=== PATIENT | female | born 1960 | race Two or more races ===

== ENCOUNTER 2017-07-26 13:59 | Emergency (ER) | payer OTHER ==
[2017-07-26 14:16] VITALS: BP 115/63; PULSE 76; TEMP 98.7; BMI 28.0
[2017-07-26] MEDS ORDERED: IBUPROFEN 400 MG TABLET (FP) PO ONE ×2 (14:59→15:07)
--- NOTE | 2017-07-26 15:12 | PDOC ---
History of Present Illness - General Chief Complaint: Injury Stated Complaint: INJURY Time Seen by Provider: 07/26/17 14:20 History Source: Patient - History of Present Illness Occurred: reports: yesterday Severity: reports: mild Pain Location: reports: lower extremity, upper extremity Method of Injury: Yes: fall Past History - Past Medical History Allergies/Adverse Reactions: Allergies Allergy/AdvReac Type Severity Reaction Status Date / Time No Known Allergies Allergy Verified 07/26/17 14:11 Home Medications: Ambulatory Orders Aspirin [ASA -] 81 mg PO DAILY 07/26/17 Escitalopram Oxalate [Lexapro -] 10 mg PO DAILY 07/26/17 Gabapentin [Neurontin] 100 mg PO ASDIR 07/26/17 Lisinopril [Prinivil] 10 mg PO DAILY 07/26/17 Metoprolol Succinate [Toprol Xl -] 50 mg PO DAILY 07/26/17 Simvastatin [Zocor -] 20 mg PO HS 07/26/17 Sitagliptin Phos/Metformin HCl [Janumet 50-500 mg Tablet] 1 each PO ASDIR Diabetes: Yes HTN: Yes Hypercholesterolemia: Yes - Psycho/Social/Smoking Cessation Hx Suicidal Ideation: No Smoking History: Current every day smoker Have you smoked in the past 12 months: Yes Number of Cigarettes Smoked Daily: 10 Information on smoking cessation initiated: No Review of Systems - Review of Systems ABD/GI: No: Nausea, Vomiting Musculoskeletal: Yes: Joint Pain, Joint Swelling Neurological: No: Headache, Dizziness *Physical Exam - Vital Signs Last Vital Signs Temp Pulse Resp BP Pulse Ox 98.7 F 76 19 115/63 100 07/26/17 14:11 07/26/17 14:11 07/26/17 14:11 07/26/17 14:11 07/26/17 14:11 - Physical Exam General Appearance: Yes: Appropriately Dressed. No: Apparent Distress HEENT: positive: Normal Voice Neck: positive: Supple Respiratory/Chest: negative: Respiratory Distress Gastrointestinal/Abdominal: positive: Soft. negative: Tender Extremity: positive: Normal Inspection, Swelling (No obvious swelling or deformity to upper extremities b/l, Minimal ttp w/ swelling over distal aspect of R 3rd-5th metatarsals) Integumentary: positive: Dry, Warm Neurologic: positive: Fully Oriented, Alert, Normal Mood/Affect ED Treatment Course - RADIOLOGY Radiology Studies Ordered: Category Date Time Status FINGER(S) RIGHT [RAD] Stat Radiology 07/26/17 15:00 Ordered FOOT-RIGHT [RAD] Stat Radiology 07/26/17 15:03 Ordered Medical Decision Making - Medical Decision Making 07/26/17 15:05 57 yo F, h/o arthritis, p/w pain to multiple sites s/p fall. Pt states she tripped and fell in the store yesterday. C/o pain to b/l thumb and R foot. Is able to ambulate and taking motrin which helps. Denies head injury, DON, dizziness, n/v See exam Multiple injuries s/p mechanical fall No head injury Not on blood thinners M/l musculoskeletal injuries -will r/o R foot fx given degree of tenderness -pain control 07/26/17 16:21 Non-displaced fx to distal phalanx of R 4th toe. Ortho shoe given. Pt already using cane. Will refer to orthopedics 07/26/17 16:28 07/26/17 16:32 *DC/Admit/Observation/Transfer Diagnosis at time of Disposition: Metatarsal fracture Qualifiers: Encounter type: initial encounter Metatarsal bone: fourth Fracture type: closed Fracture alignment: nondisplaced Laterality: right Qualified Code(s): S92.344A - Nondisplaced fracture of fourth metatarsal bone, right foot, initial encounter for closed fracture - Discharge Dispostion Disposition: HOME Condition at time of disposition: Good - Referrals Referrals: Corine Min MD [Primary Care Provider] - Meliton Paz MD [Staff Physician] - - Patient Instructions Printed Discharge Instructions: DI for Foot Fracture Additional Instructions: You have a fracture in your right 4th toe which will heal on its own. Take motrin for pain and wear hard sole shoe for comfort Please follow up with Dr Paz of orthopedics in 1-2 weeks for follow up Print Language: SERBIAN
== END 2017-07-26 16:51 | disposition home or self-care (01) ==
LOC: JERFT 13:59
DX: S92.534A Nondisplaced fracture of distal phalanx of right lesser toe(s), initial encounter for closed fracture (principal); S92.344A Nondisplaced fracture of fourth metatarsal bone, right foot, initial encounter for closed fracture; W18.39XA Other fall on same level, initial encounter; Y93.89 Activity, other specified; Y92.512 Supermarket, store or market as the place of occurrence of the external cause; Y99.8 Other external cause status; R26.89 Other abnormalities of gait and mobility; Z99.89 Dependence on other enabling machines and devices; I10 Essential (primary) hypertension; Z79.84 Long term (current) use of oral hypoglycemic drugs; E78.00 Pure hypercholesterolemia, unspecified; F17.210 Nicotine dependence, cigarettes, uncomplicated
CPT/HCPCS: 73140-TC-RT; 73630-TC-RT; 99281-25

== ENCOUNTER 2017-08-24 03:31 | Emergency (ER) | payer OTHER ==
[2017-08-24 03:53] VITALS: BMI 29.2
[2017-08-24 05:00] LABS: URINE APPEARANCE CLEAR; URINE BILIRUBIN NEGATIVE (NEGATIVE); URINE BLOOD NEGATIVE (NEGATIVE); URINE COLOR STRAW; URINE GLUCOSE (UA) NEGATIVE (NEGATIVE); URINE KETONE NEGATIVE (NEGATIVE); URINE LEUK ESTERASE NEGATIVE (NEGATIVE); URINE NITRITE NEGATIVE (NEGATIVE); URINE PROTEIN NEGATIVE (NEGATIVE); URINE UROBILINOGEN NEGATIVE mg/dL (0.2-1.0)
--- NOTE | 2017-08-24 05:02 | PDOC ---
History of Present Illness - General History Source: Patient Exam Limitations: No Limitations - History of Present Illness Initial Comments: 08/24/17 05:09 Patient is a 57 year old female with pmhx of DM who presents to the ED with epigastric pain and bilateral flank pain for few hours. Patient notes that she developed epigastric pain that radiates to bilateral back which she describes as band-like feeling. She states that the epigastric pain is exacerbated by taking a deep breath. She also reports associated dry mouth. He denies fever, nausea, vomiting, diarrhea, constipation. <Steff Jeff - Last Filed: 08/24/17 05:08> <Terri Tello - Last Filed: 08/24/17 07:06> - General Chief Complaint: Pain, Acute Stated Complaint: ABD PAIN Time Seen by Provider: 08/24/17 04:16 Past History <Steff Jeff - Last Filed: 08/24/17 05:08> - Past Medical History Diabetes: Yes HTN: Yes Hypercholesterolemia: Yes - Suicide/Smoking/Psychosocial Hx Smoking History: Never smoked Have you smoked in the past 12 months: No Number of Cigarettes Smoked Daily: 10 Information on smoking cessation initiated: No Hx Alcohol Use: No Drug/Substance Use Hx: No <Terri Tello - Last Filed: 08/24/17 07:06> - Past Medical History Allergies/Adverse Reactions: Allergies Allergy/AdvReac Type Severity Reaction Status Date / Time No Known Allergies Allergy Verified 08/24/17 03:42 Home Medications: Ambulatory Orders Aspirin [ASA -] 81 mg PO DAILY 07/26/17 Escitalopram Oxalate [Lexapro -] 10 mg PO DAILY 07/26/17 Gabapentin [Neurontin] 100 mg PO ASDIR 07/26/17 Lisinopril [Prinivil] 10 mg PO DAILY 07/26/17 Metoprolol Succinate [Toprol Xl -] 50 mg PO DAILY 07/26/17 Simvastatin [Zocor -] 20 mg PO HS 07/26/17 Sitagliptin Phos/Metformin HCl [Janumet 50-500 mg Tablet] 1 each PO ASDIR Oxybutynin Chloride [Oxybutynin Chloride ER] 10 mg PO DAILY 08/24/17 Tizanidine HCl 4 mg PO DAILY 08/24/17 Review of Systems - Review of Systems Able to Perform ROS?: Yes Comments:: 08/24/17 05:10 GENERAL/CONSTITUTIONAL: No fever or chills. No weakness. HEAD, EYES, EARS, NOSE AND THROAT: +dry mouth. No change in vision. No ear pain or discharge. No sore throat. GASTROINTESTINAL: +epigastric pain. No nausea, vomiting, diarrhea or constipation. GENITOURINARY: +bilateral flank pain. No dysuria, frequency, or change in urination. CARDIOVASCULAR: No chest pain or shortness of breath. RESPIRATORY: No cough, wheezing, or hemoptysis. MUSCULOSKELETAL: No joint or muscle swelling or pain. No neck or back pain. SKIN: No rash NEUROLOGIC: No headache, vertigo, loss of consciousness, or change in strength/ sensation. ENDOCRINE: No increased thirst. No abnormal weight change. HEMATOLOGIC/LYMPHATIC: No anemia, easy bleeding, or history of blood clots. ALLERGIC/IMMUNOLOGIC: No hives or skin allergy. <Steff Jeff - Last Filed: 08/24/17 05:08> *Physical Exam - Vital Signs Last Vital Signs Temp Pulse Resp BP Pulse Ox 98.1 F 66 18 130/70 100 08/24/17 03:38 08/24/17 03:38 08/24/17 03:38 08/24/17 03:38 08/24/17 03:38 - Physical Exam Comments: 08/24/17 05:08 GENERAL: Awake, alert, and fully oriented, in no acute distress HEAD: No signs of trauma EYES: PERRLA, EOMI, sclera anicteric, conjunctiva clear ENT: Auricles normal inspection, hearing grossly normal, nares patent, oropharynx clear without exudates. Moist mucosa NECK: Normal ROM, supple, no lymphadenopathy, JVD, or masses LUNGS: Breath sounds equal, clear to auscultation bilaterally. No wheezes, and no crackles HEART: Regular rate and rhythm, normal S1 and S2, no murmurs, rubs or gallops ABDOMEN: +mild epigastric tenderness. Soft, normoactive bowel sounds. No guarding, no rebound. No masses EXTREMITIES: Normal range of motion, no edema. No clubbing or cyanosis. No cords, erythema, or tenderness MUSCULOSKELETAL: +mild bilateral CVA tenderness NEUROLOGICAL: Cranial nerves II through XII grossly intact. Normal speech, normal gait SKIN: Warm, Dry, normal turgor, no rashes or lesions noted. <Steff Jeff - Last Filed: 08/24/17 05:08> - Vital Signs Last Vital Signs Temp Pulse Resp BP Pulse Ox 98.1 F 66 18 130/70 100 08/24/17 03:38 08/24/17 03:38 08/24/17 03:38 08/24/17 03:38 08/24/17 03:38 <Terri Tello - Last Filed: 08/24/17 07:06> Heart Score/ECG Review - History History: Slightly suspicious - Electrocardiogram EKG: Normal - Age Age: 45-65 - Risk Factors Risk Factors Heart Score: Yes Hx Diabetes, Yes Hx Obesity Based on the list above the patient has:: 1-2 risk factors - Troponin Troponin: </= normal limit - Score Heart Score - Total: 2 - ECG Impressions Comment:: EKG read 05:34- NSR 67 bpm, no acute ST/T changes <Terri Tello - Last Filed: 08/24/17 07:06> ED Treatment Course - LABORATORY CBC & Chemistry Diagram: 08/24/17 05:20 08/24/17 05:20 <Terri Tello - Last Filed: 08/24/17 07:06> Medical Decision Making - Medical Decision Making 08/24/17 07:05 Pt reassessed. Reports improvement in symptoms. We discussed additional medication, as patient is not completely relieved, vs DC home. Patient requests DC home. Stable for DC. <Terri Tello - Last Filed: 08/24/17 07:06> *DC/Admit/Observation/Transfer - Attestations Scribe Attestion: 08/24/17 05:11 Documentation prepared by JACQUIE Faith, acting as medical instructor for Terri Tello MD. <Steff Jeff - Last Filed: 08/24/17 05:08> - Discharge Dispostion Admit: No <Terri Tello - Last Filed: 08/24/17 07:06> Diagnosis at time of Disposition: Epigastric pain - Discharge Dispostion Disposition: HOME Condition at time of disposition: Improved - Referrals Referrals: Corine Min MD [Primary Care Provider] - - Patient Instructions Printed Discharge Instructions: DI for Epigastric Pain
[2017-08-24] MEDS ORDERED: ACETAMINOPHEN 1000 MG/100 ML VIAL (NON FORMULARY) IVPB ONE (05:03)
[2017-08-24] MEDS ORDERED: SODIUM CHLORIDE 1,000 ML IV STA (05:03)
[2017-08-24] MEDS ORDERED: FAMOTIDINE 20 MG/50 ML IVPB 50 ML IVPB ONE ×2 (05:03→05:14)
[2017-08-24] MEDS ORDERED: ACETAMINOPHEN INJECTION 100 ML IVPB ONE (05:13)
[2017-08-24 05:27] LABS: BASOPHIL 0.8 % (0-2.0); EOSINOPHIL 1.1 % (0-4.5); MEAN PLT VOLUME 8.5 fl (7.5-11.1); NEUTROPHILS 42.6 % (42.8-82.8); PLATELET COUNT 299 K/MM3 (134-434); RDW 12.9 % (11.6-15.6); WHITE BLOOD COUNT 12.8 K/mm3 (4.0-10.0)
[2017-08-24 05:55] LABS: ALBUMIN 3.8 g/dl (3.4-5.0); ANION GAP 11 (8-16); BILIRUBIN,TOTAL 0.3 mg/dL (0.2-1.0); CO2 25 mmol/L (21-32); GLUCOSE,RANDOM 59 mg/dL (74-106); SGOT/AST 18 U/L (15-37); SGPT/ALT 25 U/L (12-78); TOT PROT 7.3 g/dl (6.4-8.2)
[2017-08-24 05:57] LABS: ALK PHOS 78 U/L (45-117); CPK 91 IU/L (26-192); TROPONIN I < 0.02 ng/ml (0.00-0.05)
[2017-08-24 07:23] VITALS: BP 126/66; PULSE 63; TEMP 98
--- NOTE | 2017-08-24 12:53 | EKG ---
Test Reason : Blood Pressure : / mmHG Vent. Rate : 067 BPM Atrial Rate : 067 BPM P-R Int : 156 ms QRS Dur : 090 ms QT Int : 442 ms P-R-T Axes : 017 038 013 degrees QTc Int : 467 ms NORMAL SINUS RHYTHM NORMAL ECG NO PREVIOUS ECGS AVAILABLE Confirmed by CARI ALVAREZ, DAMEON ([id number]) on 08/24/2017 12:53:39 PM Referred By: Confirmed By:DAMEON ALCALA MD
== END 2017-08-24 07:23 | disposition home or self-care (01) ==
LOC: JER 03:31
PROC: 3E033GC Introduction of Other Therapeutic Substance into Peripheral Vein, Percutaneous Approach (ICD-10-PCS; principal; 2017-08-24)
PROC: 3E033NZ Introduction of Analgesics, Hypnotics, Sedatives into Peripheral Vein, Percutaneous Approach (ICD-10-PCS; 2017-08-24)
DX: R10.30 Lower abdominal pain, unspecified (principal); I10 Essential (primary) hypertension; E78.00 Pure hypercholesterolemia, unspecified; E11.9 Type 2 diabetes mellitus without complications; Z79.84 Long term (current) use of oral hypoglycemic drugs
CPT/HCPCS: 36415; 71020-TC; 80053; 81003; 83690; 84484; 85025; 87086; 93005; 93010; 99283-25

== ENCOUNTER 2022-04-05 15:19 | Inpatient (IN) | payer OTHER ==
[2022-04-05 15:30] VITALS: BMI 29.2
[2022-04-05] MEDS ORDERED: ACETAMINOPHEN 1000 MG/100 ML BAG IVPB ONE (17:09)
[2022-04-05] MEDS ORDERED: SODIUM CHLORIDE 0.9% 500 ML INFUS.BAG IV ONE (17:10)
[2022-04-05 17:22] LABS: BASO % 0.6 % (0-2.0); EOS % 0.2 % (0-4.5); HEMATOCRIT 36.8 % (32.4-45.2); HEMOGLOBIN 12.7 GM/dL (10.7-15.3); LYMPH % 27.8 % (8-40); MCH 31.9 pg (25.7-33.7); MCHC 34.6 g/dl (32.0-36.0); MEAN CELL VOLUME 92.4 fl (80-96); MEAN PLT VOLUME 8.3 fl (7.5-11.1); MONO % 7.4 % (3.8-10.2); PLATELET COUNT 346 10^3/uL (134-434); RBC 3.99 M/mm3 (3.60-5.2); RDW 13.4 % (11.6-15.6); WHITE BLOOD COUNT 9.3 K/mm3 (4.0-10.0)
[2022-04-05] MEDS ORDERED: ACETAMINOPHEN INJECTION 100 ML IVPB ONE (17:27)
[2022-04-05 17:34] LABS: INR 1.05 (0.83-1.09); PROTHROMBIN TIME (PATIENT) 12.1 SEC (9.7-13.0)
[2022-04-05 17:37] LABS: ACTIVATED PTT 31.3 SECONDS (25.2-36.5); CHLORIDE 96 mmol/L (98-107); SODIUM 132 mmol/L (136-145)
[2022-04-05 17:39] LABS: ALBUMIN 3.9 g/dl (3.4-5.0); ANION GAP 11 MMOL/L (8-16); CALCIUM 9.5 mg/dL (8.5-10.1); CO2 25 mmol/L (21-32); GLUCOSE,RANDOM 335 mg/dL (74-106)
[2022-04-05 17:40] LABS: BLOOD UREA NITROGEN 24.3 mg/dL (7-18)
[2022-04-05 17:43] LABS: CREATININE 1.6 mg/dL (0.55-1.3); SGOT/AST 23 U/L (15-37); SGPT/ALT 29 U/L (13-61)
[2022-04-05 17:44] LABS: BILIRUBIN,TOTAL 0.4 mg/dL (0.2-1); TOT PROT 7.6 g/dl (6.4-8.2)
[2022-04-05 17:45] LABS: ALK PHOS 88 U/L (45-117)
[2022-04-05] MEDS ORDERED: LACTATED RINGERS SOLUTION 1000 ML INFUS.BAG IV ONE (18:37)
[2022-04-05 20:21] LABS: PH,URINE 7.5 (5.0-8.0); URINE APPEARANCE CLEAR; URINE BILIRUBIN NEGATIVE (NEGATIVE); URINE COLOR YELLOW; URINE GLUCOSE (UA) TRACE (NEGATIVE); URINE KETONE NEGATIVE (NEGATIVE); URINE LEUK ESTERASE NEGATIVE (NEGATIVE); URINE NITRITE NEGATIVE (NEGATIVE); URINE PROTEIN NEGATIVE (NEGATIVE); URINE UROBILINOGEN 0.2 mg/dL (0.2-1.0)
[2022-04-05] MEDS ORDERED: ASPIRIN 81 MG CHEWABLE TABLETS PO ONE (20:26)
[2022-04-05] MEDS ORDERED: ASPIRIN 81 MG CHEWABLE TABLETS ONE (20:36)
[2022-04-05] MEDS ORDERED: ZOLPIDEM TARTRATE 5 MG TABLET PO ONE (21:08)
[2022-04-05] MEDS ORDERED: ZOLPIDEM TARTRATE 5 MG TABLET ONE (21:19)
[2022-04-05] MEDS ORDERED: SODIUM CHLORIDE 1,000 ML IV SCH (23:00)
[2022-04-06] MEDS: INSULIN SLIDING SCALE (NOVOLOG) 1 VIAL SQ SCH ×4 (06:05→21:30)
[2022-04-06 07:34] LABS: BASO % 0.5 % (0-2.0); EOS % 1.3 % (0-4.5); HEMATOCRIT 35.8 % (32.4-45.2); LYMPH % 43.3 % (8-40); MCH 31.4 pg (25.7-33.7); MCHC 33.6 g/dl (32.0-36.0); MEAN CELL VOLUME 93.5 fl (80-96); MEAN PLT VOLUME 8.9 fl (7.5-11.1); MONO % 9.4 % (3.8-10.2); NEUT % 45.5 % (42.8-82.8); PLATELET COUNT 338 10^3/uL (134-434); RBC 3.83 M/mm3 (3.60-5.2); RDW 13.2 % (11.6-15.6); WHITE BLOOD COUNT 8.8 K/mm3 (4.0-10.0)
[2022-04-06 07:52] LABS: BLOOD UREA NITROGEN 23.1 mg/dL (7-18); CALCIUM 8.9 mg/dL (8.5-10.1)
[2022-04-06 07:53] LABS: ALBUMIN 3.4 g/dl (3.4-5.0)
[2022-04-06 07:55] LABS: CREATININE 1.4 mg/dL (0.55-1.3)
[2022-04-06 07:56] LABS: BILIRUBIN,TOTAL 0.5 mg/dL (0.2-1); TOT PROT 6.7 g/dl (6.4-8.2)
[2022-04-06] MEDS: DEXTROSE 5%-0.45% SALINE 1,000 ML IV SCH ×2 (08:25→19:15)
[2022-04-06] MEDS ORDERED: glipiZIDE 5 MG TABLET (FP) ONE (09:22)
[2022-04-06] MEDS: metoPROLOL SUCCINATE 25 MG TAB.SR.24H (FP) PO SCH ×2 (10:23→22:11)
[2022-04-06] MEDS: ESCITALOPRAM OXALATE 20 MG TABLET PO SCH (10:24)
[2022-04-06] MEDS: GABAPENTIN 300 MG CAPSULE PO SCH ×2 (10:24→22:11)
[2022-04-06] MEDS: ASPIRIN 81 MG CHEWABLE TABLETS PO SCH (10:24)
[2022-04-06] MEDS: RIVAROXABAN 2.5 MG TABLET PO SCH ×2 (10:26→22:12)
[2022-04-06] MEDS: glipiZIDE 10 MG TABLET (FP) PO SCH (10:28)
[2022-04-06] MEDS ORDERED: ACETAMINOPHEN 325 MG TABLET (FP) PO PRN (17:19)
[2022-04-06] MEDS ORDERED: ZOLPIDEM TARTRATE 5 MG TABLET PO PRN (22:00)
[2022-04-06] MEDS ORDERED: INSULIN (LEVEMIR) 100 UNITS/ML UNITS SQ SCH (22:00)
[2022-04-06] MEDS ORDERED: ATORVASTATIN CA 80 MG TABLET (FP) PO SCH (22:00)
[2022-04-07] MEDS: INSULIN SLIDING SCALE (NOVOLOG) 1 VIAL SQ SCH ×3 (06:07→17:14)
[2022-04-07] MEDS: glipiZIDE 10 MG TABLET (FP) PO SCH (06:12)
[2022-04-07 07:17] LABS: BASO % 0.9 % (0-2.0); EOS % 1.8 % (0-4.5); HEMATOCRIT 34.3 % (32.4-45.2); HEMOGLOBIN 11.7 GM/dL (10.7-15.3); LYMPH % 38.9 % (8-40); MCH 31.7 pg (25.7-33.7); MEAN PLT VOLUME 8.4 fl (7.5-11.1); NEUT % 48.4 % (42.8-82.8); PLATELET COUNT 304 10^3/uL (134-434); RBC 3.69 M/mm3 (3.60-5.2); RDW 13.2 % (11.6-15.6); WHITE BLOOD COUNT 6.6 K/mm3 (4.0-10.0)
[2022-04-07 07:41] LABS: CALCIUM 8.7 mg/dL (8.5-10.1)
[2022-04-07 07:42] LABS: ALBUMIN 3.2 g/dl (3.4-5.0); BLOOD UREA NITROGEN 15.7 mg/dL (7-18)
[2022-04-07 07:45] LABS: CREATININE 1.3 mg/dL (0.55-1.3)
[2022-04-07 07:46] LABS: BILIRUBIN,TOTAL 0.3 mg/dL (0.2-1)
[2022-04-07 07:47] LABS: TOT PROT 6.3 g/dl (6.4-8.2)
[2022-04-07] MEDS: DEXTROSE 5%-0.45% SALINE 1,000 ML IV SCH (10:47)
[2022-04-07] MEDS: metoPROLOL SUCCINATE 25 MG TAB.SR.24H (FP) PO SCH (10:48)
[2022-04-07] MEDS: RIVAROXABAN 2.5 MG TABLET PO SCH (10:48)
[2022-04-07] MEDS: ESCITALOPRAM OXALATE 20 MG TABLET PO SCH (10:48)
[2022-04-07] MEDS: ASPIRIN 81 MG CHEWABLE TABLETS PO SCH (10:48)
[2022-04-07] MEDS: GABAPENTIN 300 MG CAPSULE PO SCH (10:49)
[2022-04-07 20:26] VITALS: BP 149/83; PULSE 83; TEMP 99
== END 2022-04-07 20:41 | disposition home or self-care (01) | DRG 198 ==
LOC: JER 15:19 → JERBED 17:56 → J4W 04-06 01:41 → OBSVTOIN 04-07 08:10
PROVIDERS: ADMIT Internal Medicine; ATTEND Internal Medicine
DX: I24.8 Other forms of acute ischemic heart disease (principal); E11.65 Type 2 diabetes mellitus with hyperglycemia; Z79.84 Long term (current) use of oral hypoglycemic drugs; K29.70 Gastritis, unspecified, without bleeding; N17.9 Acute kidney failure, unspecified; Z86.718 Personal history of other venous thrombosis and embolism; Z79.01 Long term (current) use of anticoagulants; E87.5 Hyperkalemia; E11.22 Type 2 diabetes mellitus with diabetic chronic kidney disease; I12.9 Hypertensive chronic kidney disease with stage 1 through stage 4 chronic kidney disease, or unspecified chronic kidney disease; N18.9 Chronic kidney disease, unspecified; D35.00 Benign neoplasm of unspecified adrenal gland; E11.51 Type 2 diabetes mellitus with diabetic peripheral angiopathy without gangrene
CPT/HCPCS: 36415; 70450-TC; 71045-TC-FY; 74177-TC; 80053; 80061; 81003; 82010; 82962; 83036; 83880; 84484; 85025; 85610; 85730; 87086; 93005; 93010; 93306-TC; 97116-GP; 97161-GP; 99285-25; C9803-CS; G0378; Q9967; U0003; U0005

== ENCOUNTER 2023-04-29 14:14 | Observation (INO) | payer OTHER ==
[2023-04-29] MEDS ORDERED: ACETAMINOPHEN 1000 MG/100 ML BAG IVPB ONE (15:07)
[2023-04-29] MEDS ORDERED: ASPIRIN 81 MG CHEWABLE TABLETS PO ONE (15:07)
[2023-04-29] MEDS ORDERED: ASPIRIN 81 MG CHEWABLE TABLETS ONE (15:12)
[2023-04-29] MEDS ORDERED: ACETAMINOPHEN INJECTION 100 ML IVPB ONE (15:13)
[2023-04-29 16:09] LABS: BASO % 0.7 % (0-2.0); HEMATOCRIT 35.2 % (32.4-45.2); HEMOGLOBIN 11.9 GM/dL (10.7-15.3); LYMPH % 38.1 % (8-40); MCH 30.2 pg (25.7-33.7); MCHC 33.7 g/dl (32.0-36.0); MEAN CELL VOLUME 89.6 fl (80-96); MEAN PLT VOLUME 9.4 fl (7.5-11.1); MONO % 7.4 % (3.8-10.2); NEUT % 52.8 % (42.8-82.8); PLATELET COUNT 345 10^3/uL (134-434); RBC 3.93 M/mm3 (3.60-5.2); RDW 13.7 % (11.6-15.6); WHITE BLOOD COUNT 8.7 K/mm3 (4.0-10.0)
[2023-04-29 16:25] LABS: POTASSIUM 5.3 mmol/L (3.5-5.1)
[2023-04-29 16:27] LABS: ALBUMIN 3.6 g/dl (3.4-5.0); BLOOD UREA NITROGEN 27.2 mg/dL (7-18); CALCIUM 9.4 mg/dL (8.5-10.1)
[2023-04-29 16:30] LABS: CREATININE 1.6 mg/dL (0.55-1.3)
[2023-04-29 16:32] LABS: BILIRUBIN,TOTAL 0.3 mg/dL (0.2-1); TOT PROT 7.2 g/dl (6.4-8.2)
[2023-04-29] MEDS ORDERED: LIDOCAINE 5% TOPICAL PATCH TP ONE (20:11)
[2023-04-29] MEDS ORDERED: diazePAM 2 MG TABLET PO ONE ×2 (20:12→21:23)
[2023-04-29] MEDS ORDERED: diazePAM 5 MG TABLET ONE ×2 (20:21→21:33)
[2023-04-29] MEDS ORDERED: LIDOCAINE 5% TOPICAL PATCH ONE (20:21)
[2023-04-29] MEDS ORDERED: LIDOCAINE PATCH REMOVAL MC SCH (22:00)
[2023-04-30 00:38] VITALS: BMI 30.5
[2023-04-30] MEDS ORDERED: ACETAMINOPHEN 325 MG TABLET (FP) PO PRN (00:59)
[2023-04-30] MEDS ORDERED: traMADol HCL 50 MG TABLET PO ONE (01:10)
[2023-04-30] MEDS ORDERED: ZOLPIDEM TARTRATE 5 MG TABLET PO ONE (01:10)
[2023-04-30] MEDS: RIVAROXABAN 2.5 MG TABLET PO SCH ×2 (05:22→09:39)
[2023-04-30] MEDS: GABAPENTIN 300 MG CAPSULE PO SCH ×2 (05:23→14:15)
[2023-04-30] MEDS: INSULIN SLIDING SCALE (NOVOLOG) 1 VIAL SQ SCH ×2 (06:48→11:27)
[2023-04-30 07:30] LABS: BASO % 0.9 % (0-2.0); EOS % 1.4 % (0-4.5); HEMATOCRIT 35.1 % (32.4-45.2); HEMOGLOBIN 12.1 GM/dL (10.7-15.3); LYMPH % 47.7 % (8-40); MCH 30.5 pg (25.7-33.7); MCHC 34.5 g/dl (32.0-36.0); MEAN CELL VOLUME 88.5 fl (80-96); MEAN PLT VOLUME 9.6 fl (7.5-11.1); PLATELET COUNT 314 10^3/uL (134-434); RBC 3.97 M/mm3 (3.60-5.2); RDW 13.6 % (11.6-15.6); WHITE BLOOD COUNT 7.7 K/mm3 (4.0-10.0)
[2023-04-30 08:02] LABS: POTASSIUM 4.4 mmol/L (3.5-5.1)
[2023-04-30 08:11] LABS: ALBUMIN 3.6 g/dl (3.4-5.0); CALCIUM 9.2 mg/dL (8.5-10.1)
[2023-04-30 08:12] LABS: BLOOD UREA NITROGEN 29.4 mg/dL (7-18); MAGNESIUM 1.6 mg/dL (1.8-2.4)
[2023-04-30 08:15] LABS: CREATININE 1.5 mg/dL (0.55-1.3)
[2023-04-30 08:17] LABS: BILIRUBIN,TOTAL 0.3 mg/dL (0.2-1)
[2023-04-30 09:02] VITALS: BP 154/73; PULSE 90; RESP 18; TEMP 97.7
[2023-04-30] MEDS ORDERED: metoPROLOL SUCCINATE 25 MG TAB.SR.24H (FP) PO SCH (10:00)
[2023-04-30] MEDS ORDERED: MAGNESIUM OXIDE 400 MG TABLET (FP) PO ONE (10:45)
[2023-04-30] MEDS ORDERED: INSULIN (NOVOLOG) ASPART 100 UNITS/ML 10ML VIAL ONE (11:31)
[2023-04-30] MEDS ORDERED: ZOLPIDEM TARTRATE 5 MG TABLET PO PRN (22:00)
[2023-04-30] MEDS ORDERED: CYCLOBENZAPRINE HCL 10 MG TABLET (FP) PO PRN (22:00)
== END 2023-04-30 14:15 | disposition home or self-care (01) ==
LOC: JER 14:14 → JERBED 20:02 → J4W 04-30 00:03
PROVIDERS: ADMIT Internal Medicine; ATTEND Nurse Practitioner Acute Care
PROC: 3E033NZ Introduction of Analgesics, Hypnotics, Sedatives into Peripheral Vein, Percutaneous Approach (ICD-10-PCS; principal; 2023-04-29)
PROC: 3E013VG Introduction of Insulin into Subcutaneous Tissue, Percutaneous Approach (ICD-10-PCS; 2023-04-29)
DX: R07.89 Other chest pain (principal); I10 Essential (primary) hypertension; E11.9 Type 2 diabetes mellitus without complications; E78.5 Hyperlipidemia, unspecified; N18.9 Chronic kidney disease, unspecified; N17.9 Acute kidney failure, unspecified; M25.512 Pain in left shoulder; I73.9 Peripheral vascular disease, unspecified; M54.59 Other low back pain; G89.29 Other chronic pain; Z86.718 Personal history of other venous thrombosis and embolism; Z79.84 Long term (current) use of oral hypoglycemic drugs; Z87.891 Personal history of nicotine dependence
CPT/HCPCS: 36415; 71045-TC-FY; 71275-TC; 73030-TC-LT-FY; 74174-TC; 80053; 82962; 83735; 84484; 85025; 87635; 93005; 93010; 96372; 96374; 99285-25; G0378; Q9967

== ENCOUNTER 2023-07-09 13:48 | Emergency (ER) | payer OTHER ==
[2023-07-09 13:53] VITALS: RESP 20; BMI 28.3
[2023-07-09] MEDS ORDERED: HEPARIN NA (PORCINE) 5,000 UNITS/ML 1ML VIAL IVPUSH PRN ×2 (14:06)
[2023-07-09] MEDS ORDERED: ASPIRIN 81 MG CHEWABLE TABLETS PO ONE ×3 (14:06→14:26)
[2023-07-09] MEDS ORDERED: ASPIRIN 81 MG CHEWABLE TABLETS ONE (14:11)
[2023-07-09] MEDS ORDERED: HEPARIN INFUSION - 25,000 UNITS/500 ML INFUS.BAG IVPB ONE (14:11)
[2023-07-09] MEDS ORDERED: HEPARIN - 25,000 UNIT in SODIUM CHLORIDE 495 ML IV SCH (14:15)
[2023-07-09] MEDS ORDERED: ASPIRIN 325 MG ENTERIC COATED TABLET (FP) PO ONE (14:15)
[2023-07-09] MEDS ORDERED: HEPARIN NA (PORCINE) 5,000 UNITS/ML 1ML VIAL ONE (14:16)
[2023-07-09] MEDS ORDERED: ONDANSETRON 4 MG/2 ML VIAL ONE (14:16)
[2023-07-09] MEDS ORDERED: TICAGRELOR 60 MG TABLET PO ONE (14:16)
[2023-07-09] MEDS ORDERED: TICAGRELOR 90 MG TABLET PO ONE (14:18)
[2023-07-09] MEDS ORDERED: ONDANSETRON 4 MG/2 ML VIAL IVPUSH ONE (14:25)
[2023-07-09 14:26] LABS: BASO % 0.4 % (0-2.0); HEMATOCRIT 39.9 % (32.4-45.2); HEMOGLOBIN 13.2 GM/dL (10.7-15.3); LYMPH % 10.2 % (8-40); MCH 30.4 pg (25.7-33.7); MCHC 33.1 g/dl (32.0-36.0); MEAN CELL VOLUME 91.9 fl (80-96); MEAN PLT VOLUME 8.7 fl (7.5-11.1); MONO % 2.3 % (3.8-10.2); NEUT % 87.1 % (42.8-82.8); PLATELET COUNT 393 10^3/uL (134-434); RBC 4.34 M/mm3 (3.60-5.2); RDW 13.4 % (11.6-15.6); WHITE BLOOD COUNT 13.1 K/mm3 (4.0-10.0)
[2023-07-09] MEDS ORDERED: HEPARIN INFUSION - 25,000 UNITS/500 ML INFUS.BAG IVPB SCH (14:30)
[2023-07-09 14:33] VITALS: PULSE 109; TEMP 98.1
[2023-07-09 14:34] LABS: VENOUS BASE EXCESS -5.4 mmol/L (-2-2); VENOUS O2 SATURATION 18.2 % (70-80); VENOUS PCO2 28.8 mmHg (38-52)
[2023-07-09 14:36] VITALS: BP 166/100
[2023-07-09 14:37] LABS: INR 1.03 (0.83-1.09)
[2023-07-09 14:40] LABS: ACTIVATED PTT 28.5 SECONDS (25.2-36.5)
[2023-07-09 15:02] LABS: CALCIUM 10.1 mg/dL (8.5-10.1)
[2023-07-09 15:03] LABS: ALBUMIN 4.2 g/dl (3.4-5.0); BLOOD UREA NITROGEN 28.7 mg/dL (7-18); MAGNESIUM 1.6 mg/dL (1.8-2.4)
[2023-07-09 15:06] LABS: CREATININE 1.8 mg/dL (0.55-1.3)
[2023-07-09 15:08] LABS: BILIRUBIN,TOTAL 0.4 mg/dL (0.2-1)
== END 2023-07-09 15:23 | disposition short-term general hospital (02) ==
LOC: JER 13:48
DX: R07.9 Chest pain, unspecified (principal); R11.10 Vomiting, unspecified; R19.7 Diarrhea, unspecified; I12.9 Hypertensive chronic kidney disease with stage 1 through stage 4 chronic kidney disease, or unspecified chronic kidney disease; N18.9 Chronic kidney disease, unspecified; I21.3 ST elevation (STEMI) myocardial infarction of unspecified site
CPT/HCPCS: 0241U-QW; 36415; 71045-TC-FY; 80053; 82803; 82962; 83735; 85025; 85610; 85730; 86850; 86900; 86901; 93005; 93010; 99291; J1644